=== PATIENT | female | born 1990 | race Two or more races ===

== ENCOUNTER 2020-07-14 20:05 | Observation (INO) | payer SELFPAY ==
[~2020-07-14] VITALS: Ht 152.4 cm; Wt 90.7 kg
[2020-07-14] MEDS ORDERED: NACL 0.9% 1,000 ML IV ONE (21:10)
[2020-07-14] MEDS ORDERED: cefTRIAXone 1,000 MG VIAL ONE (21:20)
== END 2020-07-14 23:00 | disposition home or self-care (01) ==
LOC: MLD 20:05
PROVIDERS: ADMIT Obstetrics & Gynecology; ATTEND Obstetrics & Gynecology
DX: O26.893 Other specified pregnancy related conditions, third trimester (principal); R10.9 Unspecified abdominal pain; O99.891 Other specified diseases and conditions complicating pregnancy; M54.9 Dorsalgia, unspecified; Z3A.35 35 weeks gestation of pregnancy
CPT/HCPCS: 96365; G0378; J0696; J7060

== ENCOUNTER 2020-08-07 05:33 | Inpatient (IN) | payer MEDICAID, SELFPAY ==
[~2020-08-07] VITALS: Ht 152.4 cm; Wt 91.6 kg
[2020-08-07] MEDS ORDERED: LACTATED RINGERS 1,000 ML IV SCH (05:55)
[2020-08-07] MEDS ORDERED: CITRIC ACID/SODIUM CITRATE 30 ML UDC PO ONE (05:55)
[2020-08-07 06:23] LABS: BASOPHILS % (AUTO) 0.7 % (0.0-2.0); EOSINOPHILS % (AUTO) 0.7 % (0.0-4.0); HEMATOCRIT 28.8 % (36-48); HEMOGLOBIN 9.7 g/dL (12.0-16.0); LYMPHOCYTES # (AUTO) 1.5 K/uL (2.5-16.5); LYMPHOCYTES % (AUTO) 25.5 % (20.5-51.1); MEAN CORPUSCULAR HEMOGLOBIN 27 pg (27-31); MEAN CORPUSCULAR HGB CONC 34 g/dL (33-37); MEAN CORPUSCULAR VOLUME 78.9 fL (80-94); MONOCYTES # (AUTO) 0.3 K/uL (0.8-1.0); MONOCYTES % (AUTO) 5.3 % (1.7-9.3); NEUTROPHILS # (AUTO) 3.9 K/uL (1.8-7.7); NEUTROPHILS % (AUTO) 67.8 % (42.2-75.2); PLATELET COUNT (AUTO) 218 K/uL (140-450); RED BLOOD CELL COUNT(AUTO) 3.65 MIL/uL (4.20-5.40); RED CELL DISTRIBUTION WIDTH 14.6 % (11.6-13.7); WHITE BLOOD COUNT (AUTO) 5.8 K/uL (4.8-10.8)
[2020-08-07] MEDS ORDERED: ceFAZolin 1,000 MG VIAL ONE (06:42)
[2020-08-07 07:01] LABS: ALBUMIN 2.5 g/dL (3.4-5.0); ANION GAP 13.6 (8-16); CARBON DIOXIDE 20.9 mmol/L (21-32); CREATININE 0.6 mg/dL (0.6-1.3); POTASSIUM 3.5 mmol/L (3.5-5.1); TOTAL BILIRUBIN 0.5 mg/dL (0.0-1.0)
[2020-08-07 07:05] VITALS: BP 109/70
[2020-08-07] MEDS ORDERED: fentaNYL citrate 0.05 MG/ML VIAL ONE (07:23)
[2020-08-07] MEDS ORDERED: MORPHINE PRES FREE 10 MG/10 ML AMP IV ONE (07:24)
[2020-08-07] MEDS ORDERED: MIDAZOLAM 2 MG/2 ML VIAL ONE (07:31)
[2020-08-07 07:42] LABS: APPEARANCE,URINE SL CLOUDY (CLEAR); BILIRUBIN,URINE NEGATIVE (NEGATIVE); BLOOD, URINE NEGATIVE (NEGATIVE); COLOR,URINE YELLOW (YELLOW); LEUKOCYTE ESTERASE ,URINE TRACE (NEGATIVE); NITRITE, URINE NEGATIVE (NEGATIVE); UGLUCOSE NEGATIVE (NEGATIVE)
[2020-08-07] MEDS ORDERED: KETOROLAC 30 MG/ML VIAL IVP PRN (07:45)
[2020-08-07] MEDS ORDERED: METHYLERGONOVINE 0.2 MG/ML AMP IM PRN (07:45)
--- NOTE | 2020-08-07 07:55 | NUR ---
PATIENT HAS BEEN SCREENED AND CATEGORIZED LOW NUTRITION RISK. PATIENT WILL BE SEEN WITHIN 7 DAYS OF ADMISSION. 08/13/[address]
[2020-08-07] MEDS ORDERED: OXYTOCIN 20 UNITS in LACTATED RINGERS 1,000 ML IV SCH (08:30)
[2020-08-07] MEDS ORDERED: NALOXONE 0.4 MG/ML VIAL IVP PRN ×2 (08:30)
[2020-08-07] MEDS ORDERED: MEPERIDINE 25 MG/ML SYR IVP PRN (08:30)
[2020-08-07] MEDS ORDERED: diphenhydrAMINE 50 MG/ML VIAL IVP PRN ×2 (08:30)
[2020-08-07] MEDS ORDERED: ONDANSETRON 4 MG/2 ML VIAL IVP PRN ×2 (08:30)
[2020-08-07 08:41] LABS: RBC,URINE 0-5 /HPF (0-5)
[2020-08-07] MEDS ORDERED: OXYTOCIN 20 UNITS/LR PREMIX 1,000 ML IV ONE (09:01)
[2020-08-07] MEDS: KETOROLAC 30 MG/ML VIAL IM/IVP SCH ×2 (12:43→19:07)
[2020-08-07] MEDS: OXYTOCIN 20 UNITS in LACTATED RINGERS 1,000 ML IV SCH (16:50)
[2020-08-07] MEDS: DOCUSATE SOD/SENNA 50/8.6 MG 1 TAB PO SCH (21:00)
[2020-08-08] MEDS ORDERED: OXYTOCIN 20 UNITS/LR PREMIX 1,000 ML IV ONE (00:29)
[2020-08-08] MEDS: KETOROLAC 30 MG/ML VIAL IM/IVP SCH (00:49)
[2020-08-08] MEDS: OXYTOCIN 20 UNITS in LACTATED RINGERS 1,000 ML IV SCH (00:51)
[2020-08-08] MEDS ORDERED: TEMAZEPAM 15 MG CAP PO PRN (02:00)
[2020-08-08] MEDS ORDERED: IBUPROFEN 800 MG TAB PO PRN (02:00)
[2020-08-08 06:18] LABS: BASOPHILS % (AUTO) 0.2 % (0.0-2.0); EOSINOPHILS % (AUTO) 0.1 % (0.0-4.0); HEMATOCRIT 27.1 % (36-48); HEMOGLOBIN 8.9 g/dL (12.0-16.0); LYMPHOCYTES # (AUTO) 1.6 K/uL (2.5-16.5); LYMPHOCYTES % (AUTO) 18.7 % (20.5-51.1); MEAN CORPUSCULAR HEMOGLOBIN 26 pg (27-31); MEAN CORPUSCULAR HGB CONC 33 g/dL (33-37); MEAN CORPUSCULAR VOLUME 80.3 fL (80-94); MONOCYTES # (AUTO) 0.5 K/uL (0.8-1.0); MONOCYTES % (AUTO) 6.2 % (1.7-9.3); NEUTROPHILS # (AUTO) 6.3 K/uL (1.8-7.7); NEUTROPHILS % (AUTO) 74.8 % (42.2-75.2); PLATELET COUNT (AUTO) 188 K/uL (140-450); RED BLOOD CELL COUNT(AUTO) 3.38 MIL/uL (4.20-5.40); RED CELL DISTRIBUTION WIDTH 14.4 % (11.6-13.7); WHITE BLOOD COUNT (AUTO) 8.4 K/uL (4.8-10.8)
[2020-08-08] MEDS: SIMETHICONE 80 MG TAB.CHEW PO PRN (09:05)
[2020-08-08] MEDS ORDERED: CAMERA MC ONE (19:39)
[2020-08-08] MEDS: DOCUSATE SOD/SENNA 50/8.6 MG 1 TAB PO SCH (21:00)
[2020-08-09] MEDS: oxyCODONE/APAP 5/325 MG 1 TAB TAB PO PRN ×2 (07:42→13:30)
[2020-08-09] MEDS: SIMETHICONE 80 MG TAB.CHEW PO PRN (07:42)
== END 2020-08-09 14:35 | disposition home or self-care (01) | DRG 540 ==
LOC: MLD 05:33 → MFCC 09:40
PROVIDERS: ADMIT Obstetrics & Gynecology; ATTEND Obstetrics & Gynecology
PROC: 10D00Z1 Extraction of Products of Conception, Low, Open Approach (ICD-10-PCS; principal; 2020-08-07 07:30)
DX: O34.211 Maternal care for low transverse scar from previous cesarean delivery (principal); Z3A.39 39 weeks gestation of pregnancy; Z37.0 Single live birth; Z20.822 Contact with and (suspected) exposure to COVID-19
CPT/HCPCS: 36415; 80053; 81001; 85025; 86592; 86886; 86900; 86901; 87081; 87086; 96360; J0690; J1885; J2250; J2270; J2590; J3010; J7060; J7120; U0003